=== PATIENT | female | born 1980 | race Caucasian/White ===

== ENCOUNTER 2018-05-06 18:59 | Emergency (ER) | payer SELFPAY ==
--- NOTE | 2018-05-06 19:28 | RADIOLOGY REPORT (SQ) ---
EXAM DESCRIPTION: ANKLE LEFT AP/LATERAL COMPLETED DATE/TIME: 05/06/2018 7:21 pm REASON FOR STUDY: Pain s/p injury/ fall COMPARISON: None. NUMBER OF VIEWS: Three views. TECHNIQUE: AP, lateral, and oblique radiographic images acquired of the left ankle. LIMITATIONS: None. FINDINGS: MINERALIZATION: Normal. BONES: Trimalleolar fracture with transverse fracture of the medial malleolus, oblique fracture of th e lateral malleolus, and a fracture of the posterior malleolus. JOINTS: No effusions. SOFT TISSUES: No soft tissue swelling. No foreign body. OTHER: No other significant finding. IMPRESSION: Trimalleolar fracture. TECHNICAL DOCUMENTATION: JOB ID: [id number] [employer]- All Rights Reserved Reading location - IP/workstation name: [email or web address]
[2018-05-06] MEDS ORDERED: KETOROLAC TROMETHAMINE INJ/PF 30 MG/1 ML SDV IV ONE (20:20)
[2018-05-06] MEDS ORDERED: MORPHINE SULFATE 10 MG/ML INJ IV PRN (20:20)
[2018-05-06] MEDS ORDERED: METOCLOPRAMIDE HCL INJ/PF 10 MG/2 ML SDV IV ONE (20:20)
[2018-05-06] MEDS ORDERED: ONDANSETRON ODT 4 MG TAB (6 TAB/ER DISP) PO PRN (20:57)
[2018-05-06] MEDS ORDERED: HYDROCODONE/ACETAMINOPHEN 5-325 MG (6 TAB/ER DISP) PO PRN (20:57)
--- NOTE | 2018-05-06 21:02 | ER Document Report ---
ED General - General Chief Complaint: Ankle Injury Stated Complaint: LEFT ANKLE PAIN Time Seen by Provider: 05/06/18 20:20 Notes: Patient is a 38-year-old female without chronic medical problems who presents after falling over 1 of her child's toys just prior to arrival. She states that she twisted her left ankle and immediately felt a severe, throbbing, aching pain. She states that she has been unable to bear weight secondary to the pain. Nothing improves the pain. She does arrive by EMS. No history of similar injury in the past. She denies any additional trauma or injury today. She does not have a primary care physician. She denies any loss of sensation or discoloration of her left foot. TRAVEL OUTSIDE OF THE [place] IN LAST 30 DAYS: No - Related Data Allergies/Adverse Reactions: No Known Allergies Allergy (Unverified 05/30/15 07:29) Past Medical History - General Information source: Patient - Social History Smoking Status: Never Smoker Frequency of alcohol use: None Drug Abuse: None Lives with: Spouse/Significant other Family History: Reviewed & Not Pertinent Patient has suicidal ideation: No Patient has homicidal ideation: No Renal/ Medical History: Denies: Hx Peritoneal Dialysis - Immunizations Hx Diphtheria, Pertussis, Tetanus Vaccination: Yes - 06/01/15 Review of Systems - Review of Systems Notes: Constitutional: Negative for fever. Eyes: Negative for visual changes. ENT: Negative for facial injury Cardiovascular: Negative for chest injury. Respiratory: Negative for shortness of breath. Gastrointestinal: Negative for abdominal injury. Genitourinary: Negative for genital injury Musculoskeletal: Positive for left ankle injury Skin: Positive for bruising of the left ankle Neurological: Negative for head injury. Physical Exam - Vital signs Vitals: Temp Pulse Resp BP Pulse Ox 98.3 F 89 18 110/80 99 05/06/18 22:00 05/06/18 22:00 05/06/18 22:00 05/06/18 22:00 05/06/18 22:00 Interpretation: Normal Notes: PHYSICAL EXAMINATION: GENERAL: Appears uncomfortable but no acute distress HEAD: Atraumatic, normocephalic. EYES: sclera anicteric, conjunctiva are normal. ENT: Moist mucous membranes. NECK: Normal range of motion LUNGS: Normal work of breathing HEART: 2+ DP pulses bilaterally, capillary refill less than 1 second in all digits of the bilateral toes. EXTREMITIES: Obvious swelling and bruising to the left ankle. Exquisite pain on palpation of both lateral and medial malleoli on the left. NEUROLOGICAL: No focal neurological deficits. Moves all extremities spontaneously and on command. Sensation grossly intact in the left foot. Able to wiggle all toes of the left foot. PSYCH: Normal mood, normal affect. SKIN: Warm, Dry, normal turgor, no rashes or lesions noted. Course - Re-evaluation Re-evalutation: 05/06/18 20:58 Patient presents with a left ankle injury that occurred after she tripped over 1 of her child's toys, found to have a trimalleolar fracture with no significant displacement based on my own interpretation as well as the radiologist interpretation. Patient has strong 2+ DP pulses, capillary refill less than 1 second in all digits of the left toe. Neurologically intact. I have discussed with Dr. Lara who is agreeable to my plan of placing the patient in a posterior long-leg splint, nonweightbearing status with crutches and follow-up in the clinic first thing on morning. The patient has been notified of this plan and is likewise agreeable. At this time will discharge with return precautions and follow-up recommendations. Verbal discharge instructions given a the bedside and opportunity for questions given. Medication warnings reviewed. Patient is in agreement with this plan and has verbalized understanding of return precautions and the need for primary care follow-up in the next 24-72 hours. - Vital Signs Vital signs: Temp Pulse Resp BP Pulse Ox 98.3 F 89 18 110/80 99 05/06/18 22:00 05/06/18 22:00 05/06/18 22:00 05/06/18 22:00 05/06/18 22:00 - Diagnostic Test Radiology reviewed: Image reviewed, Reports reviewed Radiology results interpreted by me: 05/06/18 20:59 Left ankle x-ray: Trimalleolar fracture, no significant displacement Procedures - Immobilization Left Ankle Pre-Proc Neuro Vasc Exam: Normal Immobilizer type: Long leg posterior Performed by: Provider assisted Post-Proc Neuro Vasc Exam: Normal Alignment checked and good: Yes Discharge - Discharge Clinical Impression: Closed left trimalleolar fracture Qualifiers: Encounter type: initial encounter Qualified Code(s): S82.852A - Displaced trimalleolar fracture of left lower leg, initial encounter for closed fracture Condition: Good Disposition: HOME, SELF-CARE Additional Instructions: Your seen today for a trimalleolar fracture of your left ankle. This means that 3 of the bones in your ankle are broken. You will need to follow-up on first thing with Dr. Philip Lara whose information has been included in your paperwork. Please call the office first thing and notify them that Dr. Lara would like to see you. For your pain: Take ibuprofen 600 mg and acetaminophen 1000 mg every 6 hours together as needed for pain. If this does not control your pain you may take 15 mg of oral morphine every 4 hours as needed. Please be very careful about using the oral morphine and only use this for severe pain. Please return to the emergency room immediately if you become unable to feel your left foot, develop pallor of your toes, have worsening pain, fever of greater than 100.4 F, or any other symptoms that are worrisome to you. Prescriptions: Morphine Sulfate [Morphine Ir 15 mg Tablet] 15 mg PO Q6HP PRN #12 tablet PRN Reason: Referrals: PHILIP LARA MD [ACTIVE STAFF] - 05/08/18
[2018-05-06 22:22] VITALS: BP 110/80
== END 2018-05-06 22:05 | disposition home or self-care (01) ==
LOC: ER 18:59
PROC: 2W3MX1Z Immobilization of Left Lower Extremity using Splint (ICD-10-PCS; principal; 2018-05-06)
DX: S82.852A Displaced trimalleolar fracture of left lower leg, initial encounter for closed fracture (principal); W01.0XXA Fall on same level from slipping, tripping and stumbling without subsequent striking against object, initial encounter
CPT/HCPCS: 99284; 96374; 96375; 73600; 29505; J1885; J2765; J2270

== ENCOUNTER 2018-05-12 11:43 | Day surgery (SDC) | payer SELFPAY ==
[~2018-05-12 11:43] MED LIST: CEFAZOLIN 2 GM/D5W RTU 2 GM/50 ML RTUPB IV PRN
[2018-05-12 12:18] LABS: APPEARANCE,URINE CLEAR; BILIRUBIN,URINE NEGATIVE (NEGATIVE); COLOR,URINE YELLOW; GLUCOSE, URINE NEGATIVE (NEGATIVE); KETONES,URINE NEGATIVE (NEGATIVE); LEUKOCYTE ESTERASE,URINE NEGATIVE (NEGATIVE); NITRITE,URINE NEGATIVE (NEGATIVE); PROTEIN,URINE NEGATIVE (NEGATIVE); URINE SPECIFIC GRAVITY 1.005; UROBILINOGEN,URINE NEGATIVE mg/dL (<2.0)
[2018-05-12] MEDS ORDERED: SCOPOLAMINE HYDROBROMIDE 1.5 MG PATCH.TD72 ONE (12:47)
[2018-05-12 13:01] LABS: HEMATOCRIT 37.3 % (36.0-47.0); MEAN CORPUSCULAR HEMOGLOBIN 33.1 pg (27.0-33.4); MEAN CORPUSCULAR VOLUME 95 fl (80-97); PLATELET COUNT 288 10^3/uL (150-450); RED BLOOD COUNT 3.94 10^6/uL (3.72-5.28); RED CELL DISTRIBUTION WIDTH 13.3 % (11.5-14.0); WHITE BLOOD COUNT 8.6 10^3/uL (4.0-10.5)
[2018-05-12 13:25] LABS: ANION GAP 7 (5-19); BLOOD UREA NITROGEN 6 mg/dL (7-20); CALCIUM 8.5 mg/dL (8.4-10.2); CARBON DIOXIDE 26 mmol/L (22-30); CHLORIDE 105 mmol/L (98-107); GLUCOSE 92 mg/dL (75-110); POTASSIUM 4.1 mmol/L (3.6-5.0); SODIUM 138.3 mmol/L (137-145)
[2018-05-12] MEDS ORDERED: FENTANYL CITRATE INJ/PF 250 MCG/5 ML AMPULE ONE (13:57)
[2018-05-12] MEDS ORDERED: MIDAZOLAM 2 MG/2 ML INJ ONE (13:58)
[2018-05-12] MEDS ORDERED: PROPOFOL INJ 200 MG/20 ML VIAL IV ONE (13:58)
[2018-05-12] MEDS ORDERED: MORPHINE SULFATE 10 MG/ML INJ ONE (13:58)
[2018-05-12] MEDS ORDERED: LIDOCAINE 2% INJ-PF (20 MG/ML) 10 ML AMPUL ONE (14:08)
[2018-05-12] MEDS ORDERED: ONDANSETRON HCL INJ/PF 4 MG/2 ML SDV ONE (14:08)
[2018-05-12] MEDS ORDERED: BUPIVACAINE HCL 0.5 % INJ/PF 30 ML SDV ONE (14:18)
[2018-05-12] MEDS ORDERED: DIPHENHYDRAMINE HCL 50 MG/ML VIAL IV PRN (15:12)
[2018-05-12] MEDS ORDERED: MORPHINE SULFATE 10 MG/ML INJ IV PRN (15:12)
[2018-05-12] MEDS ORDERED: MEPERIDINE HCL/PF INJ 25 MG/1 ML DISP.SYRIN IV PRN (15:12)
[2018-05-12] MEDS ORDERED: PROMETHAZINE HCL INJ 25 MG/1 ML VIAL IV PRN (15:12)
[2018-05-12] MEDS ORDERED: FENTANYL CITRATE INJ/PF 100 MCG/2 ML AMPUL IV PRN ×3 (15:12)
[2018-05-12] MEDS ORDERED: OXYCODONE HCL IR 5 MG TABLET PO PRN (15:32)
--- NOTE | 2018-05-12 15:32 | Operative Report ---
Operative Report DATE OF SURGERY: 05/12/18 PREOPERATIVE DIAGNOSIS: Left bimalleolar ankle fracture OPERATION: ORIF left ankle fracture SURGEON: PHILIP LARA ANESTHESIA: GA ESTIMATED BLOOD LOSS: 75 PROCEDURE: With the patient supine and operative table left lower extremities prepped and draped in sterile fashion. Limb was elevated for exsanguination tourniquet inflated to 280 torr. Longitudinal incisions made over the lateral surface of the distal fibula and sharp dissection was carried incision through the periosteum. The periosteum was elevated. The fracture is identified. Its reduced anatomically under direct observation and held with a lobster claw clamp. Subsequently a one third tubular [place] stainless steel plate is fashioned into a hook plate and secured with 2 screws distally and 3 screws proximally. The hardware position and the fracture reduction are checked fluoroscopically and felt to be adequate. Attention was next turned to the medial malleolus. Longitudinal incisions made over the distal medial malleolus and sharp dissection was carried incision down to the underlying bone. The fracture is reduced anatomically and held with 2 pins for the [place] 4.0 mm cannulated screw system. 250 mm screws were then used to secure the medial malleolus. At this point the tourniquet is deflated. Hemostasis obtained with electrocautery. The wound is irrigated. Is closed in layers interrupted Vicryl followed by nicole. A sterile compressive dressing is applied and the patient's return to the PACU in satisfactory condition.
[2018-05-12] MEDS: FENTANYL CITRATE INJ/PF 100 MCG/2 ML AMPUL ONE ×2 (15:50→15:55)
[2018-05-12] MEDS: MORPHINE SULFATE 10 MG/ML INJ ONE ×2 (16:05→16:22)
--- NOTE | 2018-05-12 17:01 | RADIOLOGY REPORT (SQ) ---
EXAM DESCRIPTION: ANKLE LEFT AP/LATERAL COMPLETED DATE/TIME: 05/12/2018 4:10 pm REASON FOR STUDY: ORIF LEFT ANKLE W/ FLUORO IN OR S82.852A DISPLACED TRIMALLEOLAR FRACTURE OF LEFT LOWER LEG, COMPARISON: Comparison 05/06/2018 FLUOROSCOPY TIME: 0.3 seconds 4 images saved to PACS. TECHNIQUE: Intra-operative images acquired during surgical procedure to evaluate progress. NUMBER OF IMAGES: 4 LIMITATIONS: None. FINDINGS: Intraoperative study, ORIF trimalleolar fracture left ankle. IMPRESSION: IMAGE(S) OBTAINED DURING PROCEDURE. COMMENT: Quality ID [id number]: Final reports for procedures using fluoroscopy that document radiation exp osure indices, or exposure time and number of fluorographic images (if radiation exposure indices are not available) Please consult full operative report of the attending physician for description of the procedure. TECHNICAL DOCUMENTATION: JOB ID: [id number]- All Rights Reserved Reading location - IP/workstation name: [email or web address]
--- NOTE | 2018-05-12 17:12 | RADIOLOGY REPORT (SQ) ---
EXAM DESCRIPTION: NO CHG FLUORO COMPLETE DATE/TIME: 05/12/2018 4:10 pm REASON FOR STUDY: ORIF LEFT ANKLE W/ FLUORO IN OR S82.852A DISPLACED TRIMALLEOLAR FRACTURE OF LEFT LOWER LEG, FINDINGS: Please see combined report for performance of procedure and radiologic supervision and int erpretation. IMPRESSION: Please see combined report for performance of procedure and radiologic supervision and i nterpretation. Reading location - IP/workstation name: [email or web address]
[2018-05-12 18:03] VITALS: BP 104/67
[2018-05-12] MEDS ORDERED: DEXAMETHASONE SOD PHOSPHATE INJ 4 MG/1 ML VIAL ONE (19:54)
[2018-05-12] MEDS ORDERED: SUCCINYLCHOLINE CHLORIDE INJ 200 MG/10 ML VIAL ONE (19:54)
--- NOTE | 2018-05-12 20:19 | EKG REPORT ---
SEVERITY:- OTHERWISE NORMAL ECG - SINUS TACHYCARDIA : Confirmed by: Dina Trujillo MD 12-May-2018 20:18:49
== END 2018-05-12 17:55 | disposition home or self-care (01) ==
LOC: OROUT 11:43
PROVIDERS: ATTEND Orthopaedic Surgery
DX: S82.852A Displaced trimalleolar fracture of left lower leg, initial encounter for closed fracture (principal); W01.0XXA Fall on same level from slipping, tripping and stumbling without subsequent striking against object, initial encounter; F17.210 Nicotine dependence, cigarettes, uncomplicated; Z01.818 Encounter for other preprocedural examination
CPT/HCPCS: 36415; 85027; 81025; 80048; 81001; 73600; 93005; 93010; 27766; C1713; J2250; J3490 ×2; J1100; J3010 ×2; J2270; J0330; J2405; J2704; J0690; 01830

== ENCOUNTER → 2019-04-16 | Outpatient (CLI) | payer SELFPAY ==
[2019-04-16 19:56] LABS: ABSOLUTE BASOPHILS # (AUTO) 0.1 10^3/uL (0.0-0.2); ABSOLUTE MONOCYTES (AUTO) 0.8 10^3/uL (0.1-1.4); HEMOGLOBIN 16.9 g/dL (12.0-15.5); RED CELL DISTRIBUTION WIDTH 13.2 % (11.5-14.0); TOTAL CELLS COUNTED % (AUTO) 100 %
[2019-04-16 20:00] LABS: ABSOLUTE LYMPHOCYTES (AUTO) 1.6 10^3/uL (0.5-4.7); ABSOLUTE NEUT (AUTO) 7.3 10^3/uL (1.7-8.2); BASOPHILS % (AUTO) 0.6 % (0-2); EOSINOPHILS % (AUTO) 0.4 % (0-6); HEMATOCRIT 49.3 % (36.0-47.0); LYMPHOCYTES % (AUTO) 16.7 % (13-45); MEAN CORPUSCULAR HEMOGLOBIN 32.2 pg (27.0-33.4); MEAN CORPUSCULAR HGB CONC 34.3 g/dL (32.0-36.0); MEAN CORPUSCULAR VOLUME 94 fl (80-97); PLATELET COUNT 223 10^3/uL (150-450); RED BLOOD COUNT 5.25 10^6/uL (3.72-5.28); SEGMENTED NEUTROPHILS % (AUTO) 74.3 % (42-78); WHITE BLOOD COUNT 9.8 10^3/uL (4.0-10.5)
[2019-04-16 20:18] LABS: ALANINE AMINOTRANSFERASE 48 U/L (9-52); ALKALINE PHOSPHATASE 117 U/L (38-126); ANION GAP 12 (5-19); ASPARTATE AMINO TRANSFERASE 38 U/L (14-36); BILIRUBIN,DIRECT 0.4 mg/dL (0.0-0.4); BLOOD UREA NITROGEN 3 mg/dL (7-20); CALCIUM 10.3 mg/dL (8.4-10.2); CARBON DIOXIDE 22 mmol/L (22-30); CHLORIDE 103 mmol/L (98-107); GLUCOSE 112 mg/dL (75-110); LIPASE 20.8 U/L (23-300); POTASSIUM 4.1 mmol/L (3.6-5.0); TOTAL PROTEIN 8.4 g/dL (6.3-8.2)
== END ==
LOC: LAB 19:32
PROVIDERS: ATTEND Nurse Practitioner Acute Care
DX: R10.10 Upper abdominal pain, unspecified (principal)
CPT/HCPCS: 36415; 80053; 83690; 85025